=== PATIENT | male | born 1950 | race Two or more races ===

== ENCOUNTER 2019-05-06 19:40 | Emergency (ER) | payer OTHER, BC ==
[~2019-05-06] VITALS: Ht 170.2 cm; Wt 92.1 kg
[~2019-05-06 19:40] MED LIST: ALFUZOSIN HYDRO10 M1 PO; GLUCOTROL5 MG PO; LESCOL XL80 MG PO; LISINOPRIL AND1 TA2 PO; METFORMIN HCL1000 MG PO; NORCO1 TA2 PO
[2019-05-06 19:58] VITALS: Ht 170.2 cm; Wt 92.1 kg
[2019-05-06 20:30] LABS: microscopic required? NO
[2019-05-06 20:38] LABS: BASOPHIL % 0.2 % (0-2); PLATELET COUNT 198 x10^3mcL (130-400)
[2019-05-06 20:39] LABS: UA SPECIFIC GRAVITY >=1.030 (1.005-1.035); urine erythrocyte NEGATIVE (NEGATIVE)
[2019-05-06 20:41] LABS: RED CELL DISTRIBUTION WIDTH 14.6 % (11.5-14.5)
[2019-05-06 20:46] LABS: CALCIUM 8.6 mg/dL (8.5-10.1); CARBON DIOXIDE 28.6 mmol/L (21-32); CHLORIDE SERUM 106 mmol/L (98-107); GFR1 > 60 mL/min; GLUCOSE SERUM 127 mg/dL (74-106); POTASSIUM SERUM 4.3 mmol/L (3.5-5.1); SODIUM SERUM 140 mmol/L (136-145)
[2019-05-06 20:50] LABS: ALBUMIN 3.6 g/dL (3.4-5.0); ALKALINE PHOSPHATASE 135 U/L (46-116); ALT/SGPT 35 U/L (16-63); AMYLASE 50 U/L (25-115); AST/SGOT 21 U/L (15-37); BILIRUBIN TOTAL 0.37 mg/dL (0.20-1.00); LIPASE 146 IU/L (73-393)
[2019-05-06 21:28] VITALS: BP 138/82
== END 2019-05-06 21:28 | disposition home or self-care (01) ==
LOC: ED 19:40
PROVIDERS: Emergency Medicine
DX: R10.814 Left lower quadrant abdominal tenderness (principal)
CPT/HCPCS: 36415; J1885